=== PATIENT | male | born 1955 | race Caucasian/White ===

== ENCOUNTER → 2018-06-21 | Outpatient (CLI) | payer BC ==
--- NOTE | 2018-06-21 16:22 | US ---
EXAMINATION TYPE: US scrotum with doppler. Grayscale and color Doppler Duplex imaging performed of t he scrotum. DATE OF EXAM: 06/21/2018 COMPARISON: NONE CLINICAL HISTORY: N50.89 disorders of the male genital organs. Pt states right testicle swelling x 1 year EXAM MEASUREMENTS: TESTICLES: Right Testicle: 4.7 x 2.0 x 3.9 cm Left Testicle: 4.7 x 1.7 x 2.8 cm EPIDIDYMIS HEAD: No normal epididymis visualized bilaterally due to large area of peristalsing bowel within entire s crotum Doppler performed to assess for testicular vascularity; good bilateral color flow and waveforms are s een. There is no evidence of testicular torsion. Presence of hydroceles: No Presence of varicoceles: Yes, lateral/inferior to left testicle Peristalsing bowel filling scrotum, displacing right testicle to the left Color images to bilateral testicles are felt within normal limits. IMPRESSION: There is new large bowel containing right inguinal hernia displacing scrotal contents on images saved. Advise surgical referral.
== END | disposition home or self-care (01) ==
LOC: RADUSWWP 15:35
PROVIDERS: ATTEND Family Medicine
DX: K40.90 Unilateral inguinal hernia, without obstruction or gangrene, not specified as recurrent (principal); N50.89 Other specified disorders of the male genital organs
CPT/HCPCS: 76870; 93975